=== PATIENT | female | born 1965 | race Caucasian/White ===

== ENCOUNTER → 2017-10-30 | Emergency (ER) | payer MEDICARE, MEDICAID ==
[~2017-10-30] VITALS: Ht 175.3 cm; Wt 97.7 kg
[~2017-10-30] MED LIST: ADV50250 IH; ALBU18HF2 IH; BACL20TA PO; CELE-85 PO; CLA10T PO; DEXL60CA3 PO; DILT180C PO; FURO40TA4 PO; MONT10TA21 PO; MORP40CA2 PO; OXYC40TA39 PO; PENI500T2 PO; POTA8TAB8 PO; PREG100C PO; SPIIN INH; SUMA25TA35 PO; ketorolac trometh inj. 60 MG/2 ML VIAL IM ONE
[2017-10-30 15:42] VITALS: BP 145/97
== END | disposition home or self-care (01) ==
LOC: ER 15:30
DX: J02.9 Acute pharyngitis, unspecified (principal); M25.561 Pain in right knee; I10 Essential (primary) hypertension; J44.9 Chronic obstructive pulmonary disease, unspecified; K21.9 Gastro-esophageal reflux disease without esophagitis; G89.29 Other chronic pain; Z98.890 Other specified postprocedural states; Z79.899 Other long term (current) drug therapy
CPT/HCPCS: 29505; 96372; 99284; J1885

== ENCOUNTER 2017-11-27 09:39 | Inpatient (IN) | payer MEDICARE, MEDICAID ==
[~2017-11-27] VITALS: Ht 175.3 cm; Wt 97.7 kg
[~2017-11-27 09:39] MED LIST changes: -ketorolac trometh inj. 60 MG/2 ML VIAL IM ONE
[2017-11-27] MEDS ORDERED: normal saline 1000ML IV soln IVB ONE (10:10)
[2017-11-27] MEDS ORDERED: ondansetron/PF 4mg/2ml inj IV ONE (10:10)
[2017-11-27] MEDS ORDERED: ketorolac trometh. 30mg/ml inj. IV ONE (10:10)
[2017-11-27 10:13] LABS: HEMATOCRIT 36.2 % (35.0-45.0); HEMOGLOBIN 12.5 g/dl (12.0-16.0); MEAN CORPUSCULAR HGB CONC 34.5 % (33.0-36.5); MEAN CORPUSCULAR VOLUME 83.9 FL (78-98); MEAN PLATELET VOLUME 9.2 FL (7.4-10.4); PLATELET COUNT 145 X10'3 (140-440); RED BLOOD COUNT 4.32 X10'6 (4.20-5.60); RED CELL DISTRIBUTION WIDTH 17.6 % (11.5-14.5)
[2017-11-27 10:22] LABS: WHITE BLOOD COUNT 25.5 X10'3 (4.5-11.0)
[2017-11-27 10:24] LABS: PARTIAL THROMBOPLASTIN TIME 33 SECONDS (22-32); PROTHROMBIN TIME 10.5 SECONDS (9.0-12.0)
[2017-11-27 10:32] LABS: TOTAL CELLS COUNTED 100
[2017-11-27 10:33] LABS: ANISOCYTOSIS 2+; MICROCYTOSIS 1+; PLATELET ESTIMATE NORMAL
[2017-11-27] MEDS ORDERED: azithromycin/NS 500mg/250ml 250 ML IV ONE (10:35)
[2017-11-27] MEDS ORDERED: CefTRIAXone 2gm/D5W 50ml 50 ML IV ONE (10:35)
[2017-11-27 10:36] LABS: ALANINE AMINOTRANSFERASE 51 U/L (12-78); ALBUMIN 3.5 G/DL (3.4-5.0); ALBUMIN/GLOBULIN RATIO 0.9 (1.1-1.5); ALKALINE PHOSPHATASE 77 IU/L (46-116); ANION GAP 14 (8-16); ASPARTATE AMINO TRANSFERASE 124 U/L (10-37); BILIRUBIN,TOTAL 0.8 MG/DL (0.1-1.0); BLOOD UREA NITROGEN 21 MG/DL (7-18); BUN/CREATININE RATIO 30.9 (6.6-38.0); CALCIUM 9.3 MG/DL (8.5-10.1); CHLORIDE 98 MMOL/L (99-107); CREATININE 0.68 MG/DL (0.40-0.90); GLUCOSE 125 MG/DL (70-104); SODIUM 133 MMOL/L (135-145); TOTAL CARBON DIOXIDE 21.3 MMOL/L (24-32); TOTAL PROTEIN 7.6 G/DL (6.4-8.2); eGFR > 90 ML/MIN
[2017-11-27 10:52] LABS: CLARITY,URINE SLIGHTLY CLOUDY (Clear); COLOR,URINE YELLOW (Yellow); GLUCOSE, URINE NEGATIVE (Neg); KETONES,URINE NEGATIVE (Neg); LEUKOCYTE ESTERASE ,URINE NEGATIVE (Neg); NITRITES, URINE NEGATIVE (Neg); OCCULT BLOOD,URINE LARGE (Neg); PROTEIN,URINE TRACE mg/dl (Neg); UROBILINOGEN,URINE 0.2 E.U/dL (0.2-1.0)
[2017-11-27 10:57] LABS: UA COLLECTION TYPE CLN CATCH MIDSTREAM
[2017-11-27 11:02] LABS: BACTERIA,URINE FEW /HPF (Neg); MUCUS STRANDS FEW /LPF (Neg); RBC,URINE 20-50 /HPF (0-2); SQUAMOUS EPITHELIAL CELL,UR MANY /LPF (FEW); WBC,URINE 0-4 /HPF (0-4)
[2017-11-27 11:03] LABS: AMORPHOUS URATES 1+; COARSE GRANULAR CAST 0-3 /LPF (NEGATIVE)
[2017-11-27] MEDS ORDERED: mag hydrox/Alum hydrox/simeth 30ml oral suspension PO PRN (12:25)
[2017-11-27] MEDS ORDERED: acetaminophen 325mg tablet PO PRN (12:25)
[2017-11-27] MEDS ORDERED: magnesium hydroxide 30ml (MOM) UD suspension PO PRN (12:25)
[2017-11-27] MEDS ORDERED: PREG200C PO (13:10)
[2017-11-27] MEDS ORDERED: ALLO100T PO (13:11)
[2017-11-27] MEDS ORDERED: DOCU250C4 PO (13:14)
[2017-11-27] MEDS ORDERED: NICO-687 TD (13:15)
[2017-11-27] MEDS ORDERED: ASPI-611 PO (13:17)
[2017-11-27] MEDS ORDERED: MOME17SP BOTHNARES (13:17)
[2017-11-27] MEDS ORDERED: CLIN-80 PO (13:17)
[2017-11-27] MEDS ORDERED: OXYC-658 PO (13:53)
[2017-11-27] MEDS ORDERED: MORP30TA PO (13:55)
[2017-11-27] MEDS: normal saline 1000ml 1,000 ML IV SCH (14:20)
[2017-11-27] MEDS ORDERED: SUMAtriptan 25 MG tablet PO ONE (16:30)
[2017-11-27] MEDS ORDERED: albuterol 2.5 MG/3 ML nebule NEB PRN (16:50)
[2017-11-27] MEDS ORDERED: MORP30CP13 PO (17:08)
[2017-11-27 18:08] VITALS: BP 121/77
[2017-11-27 19:00] VITALS: BP 102/56
[2017-11-27] MEDS: ipratropium 0.5 MG/2.5ML nebule IH SCH (20:03)
[2017-11-27] MEDS: pregabalin 75mg capsule PO SCH (21:03)
[2017-11-27] MEDS: pregabalin 25mg capsule PO SCH (21:03)
[2017-11-27] MEDS: oxyCODONE IR 5mg (immed. release) tablet PO SCH (21:05)
[2017-11-28] VITALS: BP 107/56
[2017-11-28] MEDS: morphine 4 MG/ML inj SYRINge IV PRN (01:19)
[2017-11-28] MEDS: normal saline 1000ml 1,000 ML IV SCH ×3 (01:20→22:10)
[2017-11-28] MEDS: ipratropium 0.5 MG/2.5ML nebule IH SCH ×4 (02:59→20:36)
[2017-11-28] MEDS: SUMAtriptan 25 MG tablet PO PRN ×2 (03:49→16:19)
[2017-11-28 05:29] LABS: BASOPHILS % (AUTO) 0.2 % (0-1); EOSINOPHILS # (AUTO) 0.3 X10'3 (0-0.9); EOSINOPHILS % (AUTO) 1.4 % (0-6); HEMATOCRIT 31.8 % (35.0-45.0); HEMOGLOBIN 10.8 g/dl (12.0-16.0); LYMPHOCYTES # (AUTO) 1.4 X10'3 (1.1-4.8); LYMPHOCYTES % (AUTO) 7.4 % (21-51); MEAN CORPUSCULAR HGB CONC 34.1 % (33.0-36.5); MEAN PLATELET VOLUME 9.8 FL (7.4-10.4); MONOCYTES # (AUTO) 1.4 X10'3 (0-0.9); MONOCYTES % (AUTO) 7.2 % (2-12); NEUTROPHILS # (AUTO) 16.3 X10'3 (1.8-7.7); NEUTROPHILS % (AUTO) 83.8 % (42-75); PLATELET COUNT 133 X10'3 (140-440); RED BLOOD COUNT 3.74 X10'6 (4.20-5.60); RED CELL DISTRIBUTION WIDTH 17.7 % (11.5-14.5); WHITE BLOOD COUNT 19.4 X10'3 (4.5-11.0)
[2017-11-28 05:40] LABS: ALBUMIN 2.8 G/DL (3.4-5.0); ANION GAP 11 (8-16); BLOOD UREA NITROGEN 11 MG/DL (7-18); CALCIUM 8.5 MG/DL (8.5-10.1); CHLORIDE 102 MMOL/L (99-107); CREATININE 0.61 MG/DL (0.40-0.90); GLUCOSE 148 MG/DL (70-104); POTASSIUM 3.4 MMOL/L (3.5-5.1); SODIUM 138 MMOL/L (135-145); TOTAL CARBON DIOXIDE 24.7 MMOL/L (24-32); eGFR > 90 ML/MIN
[2017-11-28 07:00] VITALS: BP 141/82
[2017-11-28] MEDS: pregabalin 25mg capsule PO SCH ×2 (07:55→20:17)
[2017-11-28] MEDS: allopurinol 100mg tablet PO SCH (07:56)
[2017-11-28] MEDS: morphine ER 30mg tablet PO SCH (07:56)
[2017-11-28] MEDS: montelukast 10mg tablet PO SCH (07:56)
[2017-11-28] MEDS: potassium chloride 8mEq ER tablet PO SCH (07:56)
[2017-11-28] MEDS: pregabalin 75mg capsule PO SCH ×2 (07:57→20:18)
[2017-11-28] MEDS: loratadine 10mg tablet PO SCH (07:57)
[2017-11-28] MEDS: aspirin 81mg tablet.DR PO SCH (07:58)
[2017-11-28] MEDS: pantoprazole 40mg Tablet.DR PO SCH (07:58)
[2017-11-28] MEDS: celeCOXIB 100mg capsule PO SCH (07:58)
[2017-11-28] MEDS: diltiazem CD 180mg cap (once-daily) PO SCH (07:59)
[2017-11-28] MEDS: nicotine 21mg patch - 24 hr TD SCH (07:59)
[2017-11-28] MEDS: enoxaparin 40mg/0.4ml syringe SUBCUT SCH (08:00)
[2017-11-28] MEDS ORDERED: SUMAtriptan 25 MG tablet PO SCH (08:00)
[2017-11-28] MEDS: CefTRIAXone 2gm/D5W 50ml 50 ML IV SCH (08:00)
[2017-11-28] MEDS ORDERED: morphine IR (immed. release) 30mg tablet PO SCH (08:00)
[2017-11-28] MEDS: fluticasone nasal spray 16GM bottle NS SCH (08:00)
[2017-11-28] MEDS: azithromycin/NS 500mg/250ml 250 ML IV SCH (08:08)
[2017-11-28] MEDS ORDERED: phenylephrine 1% (X-tra strg) 15ml nasal spray NS ONE (09:00)
[2017-11-28] MEDS ORDERED: LIDOcaine 4% (40 mg/ml) topical solution 50ml TP ONE (09:00)
[2017-11-28] MEDS: oxyCODONE IR 5mg (immed. release) tablet PO SCH ×3 (10:00→20:43)
[2017-11-28] MEDS ORDERED: butalbital/acetaminophen/caffeine (Fioricet) tablet PO PRN (11:55)
[2017-11-28 12:00] VITALS: BP 113/69
[2017-11-28 19:00] VITALS: BP 123/88
[2017-11-28] MEDS ORDERED: diphenhydrAMINE 50 mg/ml inj IV ONE (21:55)
[2017-11-28] MEDS ORDERED: nicotine 21mg patch - 24 hr TD ONE (21:55)
[2017-11-29] VITALS: BP 119/83
[2017-11-29] MEDS: morphine 4 MG/ML inj SYRINge IV PRN ×2 (02:09→09:19)
[2017-11-29] MEDS: ondansetron/PF 4mg/2ml inj IV PRN ×2 (03:17→09:19)
[2017-11-29] MEDS: ipratropium 0.5 MG/2.5ML nebule IH SCH ×3 (04:11→20:42)
[2017-11-29] MEDS: SUMAtriptan 25 MG tablet PO PRN ×2 (04:20→18:32)
[2017-11-29] MEDS: normal saline 1000ml 1,000 ML IV SCH ×3 (04:24→20:45)
[2017-11-29 05:34] LABS: BASOPHILS % (AUTO) 0.1 % (0-1); EOSINOPHILS # (AUTO) 0.2 X10'3 (0-0.9); EOSINOPHILS % (AUTO) 2.4 % (0-6); HEMATOCRIT 30.2 % (35.0-45.0); HEMOGLOBIN 10.3 g/dl (12.0-16.0); LYMPHOCYTES # (AUTO) 1.2 X10'3 (1.1-4.8); LYMPHOCYTES % (AUTO) 11.8 % (21-51); MEAN CORPUSCULAR VOLUME 85.4 FL (78-98); MEAN PLATELET VOLUME 9.6 FL (7.4-10.4); MONOCYTES # (AUTO) 0.9 X10'3 (0-0.9); MONOCYTES % (AUTO) 9.4 % (2-12); NEUTROPHILS # (AUTO) 7.6 X10'3 (1.8-7.7); NEUTROPHILS % (AUTO) 76.3 % (42-75); PLATELET COUNT 143 X10'3 (140-440); RED BLOOD COUNT 3.54 X10'6 (4.20-5.60); RED CELL DISTRIBUTION WIDTH 18.1 % (11.5-14.5)
[2017-11-29 05:47] LABS: ANION GAP 9 (8-16); BLOOD UREA NITROGEN 9 MG/DL (7-18); BUN/CREATININE RATIO 16.4 (6.6-38.0); CALCIUM 8.9 MG/DL (8.5-10.1); CHLORIDE 103 MMOL/L (99-107); CREATININE 0.55 MG/DL (0.40-0.90); GLUCOSE 133 MG/DL (70-104); POTASSIUM 3.4 MMOL/L (3.5-5.1); SODIUM 141 MMOL/L (135-145); TOTAL CARBON DIOXIDE 29.5 MMOL/L (24-32); eGFR > 90 ML/MIN
[2017-11-29 06:00] VITALS: BP 130/80
[2017-11-29] MEDS: pregabalin 75mg capsule PO SCH ×2 (08:00→19:36)
[2017-11-29] MEDS: morphine ER 30mg tablet PO SCH (08:00)
[2017-11-29] MEDS: fluticasone nasal spray 16GM bottle NS SCH (08:00)
[2017-11-29] MEDS: CefTRIAXone 2gm/D5W 50ml 50 ML IV SCH (09:15)
[2017-11-29] MEDS: azithromycin/NS 500mg/250ml 250 ML IV SCH (09:15)
[2017-11-29] MEDS: nicotine 21mg patch - 24 hr TD SCH (09:21)
[2017-11-29] MEDS: enoxaparin 40mg/0.4ml syringe SUBCUT SCH (09:22)
[2017-11-29] MEDS: pantoprazole 40mg Tablet.DR PO SCH (10:40)
[2017-11-29] MEDS: allopurinol 100mg tablet PO SCH (10:40)
[2017-11-29] MEDS: celeCOXIB 100mg capsule PO SCH (10:40)
[2017-11-29] MEDS: oxyCODONE IR 5mg (immed. release) tablet PO SCH ×3 (10:41→20:40)
[2017-11-29] MEDS: pregabalin 25mg capsule PO SCH ×2 (10:41→19:36)
[2017-11-29] MEDS: potassium chloride 8mEq ER tablet PO SCH (10:42)
[2017-11-29] MEDS: diltiazem CD 180mg cap (once-daily) PO SCH (10:42)
[2017-11-29] MEDS: montelukast 10mg tablet PO SCH (10:42)
[2017-11-29] MEDS: aspirin 81mg tablet.DR PO SCH (10:42)
[2017-11-29] MEDS: loratadine 10mg tablet PO SCH (10:43)
[2017-11-29 11:00] VITALS: BP 128/83
[2017-11-29 19:00] VITALS: BP 137/90
[2017-11-29] MEDS: lactobacillus rhamnosus 10,000 MMU CELLS/CAPSULE PO SCH (19:36)
[2017-11-30] VITALS: BP 141/84
[2017-11-30] MEDS: morphine 4 MG/ML inj SYRINge IV PRN (02:27)
[2017-11-30] MEDS: ipratropium 0.5 MG/2.5ML nebule IH SCH ×4 (03:00→20:38)
[2017-11-30 06:04] LABS: BASOPHILS % (AUTO) 0.3 % (0-1); EOSINOPHILS # (AUTO) 0.2 X10'3 (0-0.9); EOSINOPHILS % (AUTO) 2.9 % (0-6); HEMATOCRIT 31.3 % (35.0-45.0); HEMOGLOBIN 10.5 g/dl (12.0-16.0); LYMPHOCYTES # (AUTO) 1.4 X10'3 (1.1-4.8); LYMPHOCYTES % (AUTO) 25.3 % (21-51); MEAN CORPUSCULAR HEMOGLOBIN 28.9 PG (27.0-31.0); MEAN CORPUSCULAR HGB CONC 33.6 % (33.0-36.5); MONOCYTES # (AUTO) 0.6 X10'3 (0-0.9); MONOCYTES % (AUTO) 11.3 % (2-12); NEUTROPHILS # (AUTO) 3.3 X10'3 (1.8-7.7); NEUTROPHILS % (AUTO) 60.2 % (42-75); PLATELET COUNT 154 X10'3 (140-440); RED BLOOD COUNT 3.64 X10'6 (4.20-5.60); WHITE BLOOD COUNT 5.4 X10'3 (4.5-11.0)
[2017-11-30 06:18] LABS: ALBUMIN 2.5 G/DL (3.4-5.0); ANION GAP 7 (8-16); BLOOD UREA NITROGEN 7 MG/DL (7-18); BUN/CREATININE RATIO 13.5 (6.6-38.0); CALCIUM 8.9 MG/DL (8.5-10.1); CHLORIDE 108 MMOL/L (99-107); CREATININE 0.52 MG/DL (0.40-0.90); GLUCOSE 92 MG/DL (70-104); POTASSIUM 3.5 MMOL/L (3.5-5.1); SODIUM 146 MMOL/L (135-145); TOTAL CARBON DIOXIDE 31.3 MMOL/L (24-32); eGFR > 90 ML/MIN
[2017-11-30 07:00] VITALS: BP 148/101
[2017-11-30] MEDS: diltiazem CD 180mg cap (once-daily) PO SCH (07:45)
[2017-11-30] MEDS: lactobacillus rhamnosus 10,000 MMU CELLS/CAPSULE PO SCH ×2 (07:46→20:06)
[2017-11-30] MEDS: celeCOXIB 100mg capsule PO SCH (07:46)
[2017-11-30] MEDS: pregabalin 25mg capsule PO SCH ×2 (07:46→20:06)
[2017-11-30] MEDS: potassium chloride 8mEq ER tablet PO SCH (07:47)
[2017-11-30] MEDS: morphine ER 30mg tablet PO SCH (07:47)
[2017-11-30] MEDS: pregabalin 75mg capsule PO SCH ×2 (07:47→20:06)
[2017-11-30] MEDS: aspirin 81mg tablet.DR PO SCH (07:47)
[2017-11-30] MEDS: loratadine 10mg tablet PO SCH (07:47)
[2017-11-30] MEDS: montelukast 10mg tablet PO SCH (07:47)
[2017-11-30] MEDS: oxyCODONE IR 5mg (immed. release) tablet PO SCH ×5 (07:48→22:33)
[2017-11-30] MEDS: enoxaparin 40mg/0.4ml syringe SUBCUT SCH (07:49)
[2017-11-30] MEDS: nicotine 21mg patch - 24 hr TD SCH ×2 (07:49→11:10)
[2017-11-30] MEDS: CefTRIAXone 2gm/D5W 50ml 50 ML IV SCH (07:49)
[2017-11-30] MEDS: pantoprazole 40mg Tablet.DR PO SCH (08:00)
[2017-11-30] MEDS: fluticasone nasal spray 16GM bottle NS SCH (08:00)
[2017-11-30] MEDS: allopurinol 100mg tablet PO SCH (08:00)
[2017-11-30] MEDS ORDERED: methylPREDNISolone acetate 80mg/ml inj**IM only IM ONE (09:55)
[2017-11-30] MEDS ORDERED: diphenhydrAMINE 50 mg/ml inj IV ONE ×2 (09:55→14:25)
[2017-11-30] MEDS ORDERED: triamcinolone acetonide 40mg/ml inj IM ONE (10:20)
[2017-11-30 11:00] VITALS: BP 148/111
[2017-11-30] MEDS: azithromycin/NS 500mg/250ml 250 ML IV SCH (11:13)
[2017-11-30] MEDS: normal saline 1000ml 1,000 ML IV SCH ×2 (11:18→19:48)
[2017-11-30] MEDS ORDERED: diphenhydrAMINE 50 mg/ml inj IM ONE (13:40)
[2017-11-30] MEDS ORDERED: ketorolac trometh inj. 60 MG/2 ML VIAL IM ONE (13:45)
[2017-11-30] MEDS: SUMAtriptan 25 MG tablet PO PRN (14:03)
[2017-11-30 20:00] VITALS: BP 179/119
[2017-11-30] MEDS ORDERED: morphine 10mg/ml inj. IV PRN (20:15)
[2017-12-01] VITALS: BP 170/107
[2017-12-01] MEDS: lisinopril 5mg tablet PO SCH ×2 (00:42→07:53)
[2017-12-01] MEDS: famotidine/PF 10 mg/ml inj IV SCH ×2 (01:00→08:00)
[2017-12-01] MEDS: hydrocortisone 1% cream 28gm TP SCH ×3 (01:05→20:17)
[2017-12-01] MEDS: diphenhydrAMINE 50 mg/ml inj IV PRN (01:44)
[2017-12-01] MEDS: ipratropium 0.5 MG/2.5ML nebule IH SCH ×3 (03:00→20:43)
[2017-12-01 05:27] LABS: BASOPHILS % (AUTO) 0.5 % (0-1); EOSINOPHILS # (AUTO) 0.2 X10'3 (0-0.9); EOSINOPHILS % (AUTO) 3.8 % (0-6); HEMATOCRIT 29.1 % (35.0-45.0); HEMOGLOBIN 10.1 g/dl (12.0-16.0); LYMPHOCYTES # (AUTO) 1.5 X10'3 (1.1-4.8); LYMPHOCYTES % (AUTO) 26.3 % (21-51); MEAN CORPUSCULAR HEMOGLOBIN 29.1 PG (27.0-31.0); MEAN CORPUSCULAR HGB CONC 34.5 % (33.0-36.5); MEAN CORPUSCULAR VOLUME 84.1 FL (78-98); MEAN PLATELET VOLUME 8.6 FL (7.4-10.4); MONOCYTES # (AUTO) 0.7 X10'3 (0-0.9); MONOCYTES % (AUTO) 12.8 % (2-12); NEUTROPHILS # (AUTO) 3.2 X10'3 (1.8-7.7); NEUTROPHILS % (AUTO) 56.6 % (42-75); PLATELET COUNT 166 X10'3 (140-440); RED BLOOD COUNT 3.46 X10'6 (4.20-5.60); RED CELL DISTRIBUTION WIDTH 18.3 % (11.5-14.5); WHITE BLOOD COUNT 5.7 X10'3 (4.5-11.0)
[2017-12-01 05:43] LABS: ALBUMIN 2.5 G/DL (3.4-5.0); ANION GAP 7 (8-16); BLOOD UREA NITROGEN 11 MG/DL (7-18); CALCIUM 8.9 MG/DL (8.5-10.1); CHLORIDE 107 MMOL/L (99-107); GLUCOSE 94 MG/DL (70-104); POTASSIUM 3.4 MMOL/L (3.5-5.1); SODIUM 143 MMOL/L (135-145); TOTAL CARBON DIOXIDE 29.5 MMOL/L (24-32); eGFR > 90 ML/MIN
[2017-12-01] MEDS: normal saline 1000ml 1,000 ML IV SCH ×2 (06:24→16:24)
[2017-12-01 06:54] VITALS: BP 156/91
[2017-12-01] MEDS: diltiazem CD 180mg cap (once-daily) PO SCH (07:52)
[2017-12-01] MEDS: pregabalin 25mg capsule PO SCH ×2 (07:52→20:17)
[2017-12-01] MEDS: nicotine 21mg patch - 24 hr TD SCH (07:52)
[2017-12-01] MEDS: pregabalin 75mg capsule PO SCH ×2 (07:52→20:17)
[2017-12-01] MEDS: azithromycin 250mg tablet PO SCH (07:53)
[2017-12-01] MEDS: loratadine 10mg tablet PO SCH (07:53)
[2017-12-01] MEDS: aspirin 81mg tablet.DR PO SCH (07:54)
[2017-12-01] MEDS: allopurinol 100mg tablet PO SCH (07:54)
[2017-12-01] MEDS: lactobacillus rhamnosus 10,000 MMU CELLS/CAPSULE PO SCH ×2 (07:54→20:17)
[2017-12-01] MEDS: celeCOXIB 100mg capsule PO SCH (07:54)
[2017-12-01] MEDS: potassium chloride 8mEq ER tablet PO SCH (07:54)
[2017-12-01] MEDS: morphine ER 30mg tablet PO SCH (07:55)
[2017-12-01] MEDS: CefTRIAXone 2gm/D5W 50ml 50 ML IV SCH (07:55)
[2017-12-01] MEDS: fluticasone nasal spray 16GM bottle NS SCH (08:00)
[2017-12-01] MEDS: montelukast 10mg tablet PO SCH (08:00)
[2017-12-01] MEDS: oxyCODONE IR 5mg (immed. release) tablet PO PRN ×2 (08:09→18:24)
[2017-12-01] MEDS: enoxaparin 40mg/0.4ml syringe SUBCUT SCH (08:11)
[2017-12-01 10:40] VITALS: BP 147/90
[2017-12-01] MEDS ORDERED: LORazepam 0.5 MG tablet PO PRN (10:40)
[2017-12-01] MEDS: diphenhydrAMINE 25mg capsule PO PRN ×2 (15:28→22:20)
[2017-12-01] MEDS: SUMAtriptan 25 MG tablet PO PRN (19:44)
[2017-12-01 20:00] VITALS: BP 150/102
[2017-12-01] MEDS: bacitracin 15gm ointment TP SCH (20:17)
[2017-12-02] VITALS: BP 153/111
[2017-12-02] MEDS: normal saline 1000ml 1,000 ML IV SCH ×3 (02:24→15:10)
[2017-12-02] MEDS: ipratropium 0.5 MG/2.5ML nebule IH SCH ×3 (02:34→20:45)
[2017-12-02] MEDS: oxyCODONE IR 5mg (immed. release) tablet PO PRN ×3 (04:24→20:15)
[2017-12-02 05:28] LABS: BASOPHILS % (AUTO) 0.4 % (0-1); EOSINOPHILS # (AUTO) 0.2 X10'3 (0-0.9); EOSINOPHILS % (AUTO) 4.3 % (0-6); HEMATOCRIT 31.1 % (35.0-45.0); HEMOGLOBIN 10.6 g/dl (12.0-16.0); LYMPHOCYTES # (AUTO) 1.5 X10'3 (1.1-4.8); LYMPHOCYTES % (AUTO) 31.1 % (21-51); MEAN CORPUSCULAR HEMOGLOBIN 28.7 PG (27.0-31.0); MEAN CORPUSCULAR HGB CONC 34.1 % (33.0-36.5); MEAN CORPUSCULAR VOLUME 84.3 FL (78-98); MEAN PLATELET VOLUME 8.2 FL (7.4-10.4); MONOCYTES # (AUTO) 0.7 X10'3 (0-0.9); MONOCYTES % (AUTO) 14.5 % (2-12); NEUTROPHILS # (AUTO) 2.5 X10'3 (1.8-7.7); NEUTROPHILS % (AUTO) 49.7 % (42-75); PLATELET COUNT 181 X10'3 (140-440); RED BLOOD COUNT 3.68 X10'6 (4.20-5.60); RED CELL DISTRIBUTION WIDTH 18.3 % (11.5-14.5); WHITE BLOOD COUNT 4.9 X10'3 (4.5-11.0)
[2017-12-02] MEDS: diphenhydrAMINE 25mg capsule PO PRN ×2 (05:30→22:58)
[2017-12-02 05:40] LABS: ALBUMIN 2.7 G/DL (3.4-5.0); ANION GAP 7 (8-16); BLOOD UREA NITROGEN 10 MG/DL (7-18); BUN/CREATININE RATIO 18.2 (6.6-38.0); CALCIUM 9.2 MG/DL (8.5-10.1); CHLORIDE 105 MMOL/L (99-107); CREATININE 0.55 MG/DL (0.40-0.90); GLUCOSE 104 MG/DL (70-104); SODIUM 143 MMOL/L (135-145); TOTAL CARBON DIOXIDE 31.3 MMOL/L (24-32); eGFR > 90 ML/MIN
[2017-12-02 07:06] VITALS: BP 158/96
[2017-12-02] MEDS: bacitracin 15gm ointment TP SCH ×2 (07:18→20:17)
[2017-12-02] MEDS: hydrocortisone 1% cream 28gm TP SCH ×2 (07:19→20:17)
[2017-12-02] MEDS: pregabalin 75mg capsule PO SCH ×2 (07:20→20:15)
[2017-12-02] MEDS: allopurinol 100mg tablet PO SCH (07:20)
[2017-12-02] MEDS: pregabalin 25mg capsule PO SCH ×2 (07:20→20:16)
[2017-12-02] MEDS: montelukast 10mg tablet PO SCH (07:21)
[2017-12-02] MEDS: loratadine 10mg tablet PO SCH (07:21)
[2017-12-02] MEDS: morphine ER 30mg tablet PO SCH (07:21)
[2017-12-02] MEDS: lisinopril 5mg tablet PO SCH (07:21)
[2017-12-02] MEDS: lactobacillus rhamnosus 10,000 MMU CELLS/CAPSULE PO SCH ×2 (07:22→20:15)
[2017-12-02] MEDS: aspirin 81mg tablet.DR PO SCH (07:22)
[2017-12-02] MEDS: potassium chloride 8mEq ER tablet PO SCH (07:22)
[2017-12-02] MEDS: diltiazem CD 180mg cap (once-daily) PO SCH (07:22)
[2017-12-02] MEDS: celeCOXIB 100mg capsule PO SCH (07:23)
[2017-12-02] MEDS: azithromycin 250mg tablet PO SCH (07:23)
[2017-12-02] MEDS: enoxaparin 40mg/0.4ml syringe SUBCUT SCH (07:24)
[2017-12-02] MEDS: CefTRIAXone 2gm/D5W 50ml 50 ML IV SCH (07:25)
[2017-12-02] MEDS: nicotine 21mg patch - 24 hr TD SCH (07:27)
[2017-12-02] MEDS: ondansetron/PF 4mg/2ml inj IV PRN (10:44)
[2017-12-02 11:00] VITALS: BP_SYST 145; BP_SYST 147; BP_DIAS 85; BP_DIAS 89
[2017-12-02 12:00] VITALS: BP 158/96
[2017-12-02 13:10] VITALS: BP 147/83
[2017-12-02] MEDS: aspirin/acetaminophen/caffeine tablet PO PRN ×2 (15:09→22:59)
[2017-12-02] MEDS: fluticasone nasal spray 16GM bottle NS SCH (16:38)
[2017-12-02 20:00] VITALS: BP 155/98
[2017-12-03] VITALS: BP 139/94
[2017-12-03] MEDS: normal saline 1000ml 1,000 ML IV SCH ×2 (02:23→11:40)
[2017-12-03] MEDS: ipratropium 0.5 MG/2.5ML nebule IH SCH ×2 (03:00→21:13)
[2017-12-03] MEDS: oxyCODONE IR 5mg (immed. release) tablet PO PRN ×3 (04:20→19:48)
[2017-12-03 07:37] VITALS: BP 130/82
[2017-12-03] MEDS: hydrocortisone 1% cream 28gm TP SCH ×3 (08:00→19:37)
[2017-12-03] MEDS: lactobacillus rhamnosus 10,000 MMU CELLS/CAPSULE PO SCH ×2 (09:06→19:35)
[2017-12-03] MEDS: pregabalin 75mg capsule PO SCH (09:07)
[2017-12-03] MEDS: pregabalin 25mg capsule PO SCH (09:07)
[2017-12-03] MEDS: azithromycin 250mg tablet PO SCH (09:07)
[2017-12-03] MEDS: celeCOXIB 100mg capsule PO SCH (09:08)
[2017-12-03] MEDS: diltiazem CD 180mg cap (once-daily) PO SCH (09:09)
[2017-12-03] MEDS: morphine ER 30mg tablet PO SCH (09:09)
[2017-12-03] MEDS: bacitracin 15gm ointment TP SCH ×2 (09:11→19:36)
[2017-12-03] MEDS: aspirin 81mg tablet.DR PO SCH (09:12)
[2017-12-03] MEDS: potassium chloride 8mEq ER tablet PO SCH (09:12)
[2017-12-03] MEDS: loratadine 10mg tablet PO SCH (09:12)
[2017-12-03] MEDS: allopurinol 100mg tablet PO SCH (09:12)
[2017-12-03] MEDS: enoxaparin 40mg/0.4ml syringe SUBCUT SCH (09:13)
[2017-12-03] MEDS: lisinopril 5mg tablet PO SCH (09:13)
[2017-12-03] MEDS: CefTRIAXone 2gm/D5W 50ml 50 ML IV SCH (09:14)
[2017-12-03] MEDS: fluticasone nasal spray 16GM bottle NS SCH (09:16)
[2017-12-03] MEDS: montelukast 10mg tablet PO SCH (09:17)
[2017-12-03] MEDS: nicotine 21mg patch - 24 hr TD SCH (09:23)
[2017-12-03 11:00] VITALS: BP 130/86
[2017-12-03 11:22] VITALS: BP 139/75
[2017-12-03] MEDS ORDERED: oxyCODONE IR 5mg (immed. release) tablet PO PRN (12:35)
[2017-12-03] MEDS: gabapentin 400mg capsule PO SCH ×2 (13:10→22:47)
[2017-12-03] MEDS: ondansetron/PF 4mg/2ml inj IV PRN (13:17)
[2017-12-03] MEDS: diphenhydrAMINE 25mg capsule PO PRN (19:35)
[2017-12-03] MEDS: aspirin/acetaminophen/caffeine tablet PO PRN (19:35)
[2017-12-03 20:00] VITALS: BP 137/87
[2017-12-04] VITALS: BP 138/89
[2017-12-04] MEDS: oxyCODONE IR 5mg (immed. release) tablet PO PRN ×4 (01:34→19:50)
[2017-12-04] MEDS: normal saline 1000ml 1,000 ML IV SCH ×3 (01:35→21:38)
[2017-12-04] MEDS: diphenhydrAMINE 50 mg/ml inj IV PRN ×3 (01:35→23:54)
[2017-12-04] MEDS: ipratropium 0.5 MG/2.5ML nebule IH SCH ×4 (03:00→20:20)
[2017-12-04 07:28] VITALS: BP 137/92
[2017-12-04] MEDS: enoxaparin 40mg/0.4ml syringe SUBCUT SCH (08:00)
[2017-12-04] MEDS: diltiazem CD 180mg cap (once-daily) PO SCH (09:42)
[2017-12-04] MEDS: aspirin 81mg tablet.DR PO SCH (09:42)
[2017-12-04] MEDS: morphine ER 30mg tablet PO SCH (09:42)
[2017-12-04] MEDS: potassium chloride 8mEq ER tablet PO SCH (09:42)
[2017-12-04] MEDS: gabapentin 100mg capsule PO SCH ×3 (09:43→21:38)
[2017-12-04] MEDS: montelukast 10mg tablet PO SCH (09:43)
[2017-12-04] MEDS: loratadine 10mg tablet PO SCH (09:44)
[2017-12-04] MEDS: lisinopril 5mg tablet PO SCH (09:44)
[2017-12-04] MEDS: lactobacillus rhamnosus 10,000 MMU CELLS/CAPSULE PO SCH ×2 (09:45→19:50)
[2017-12-04] MEDS: allopurinol 100mg tablet PO SCH (09:45)
[2017-12-04] MEDS: azithromycin 250mg tablet PO SCH (09:45)
[2017-12-04] MEDS: celeCOXIB 100mg capsule PO SCH (09:46)
[2017-12-04] MEDS: hydrocortisone 1% cream 28gm TP SCH ×2 (09:47→19:51)
[2017-12-04] MEDS: fluticasone nasal spray 16GM bottle NS SCH (09:47)
[2017-12-04] MEDS: nicotine 21mg patch - 24 hr TD SCH (09:49)
[2017-12-04] MEDS: CefTRIAXone 2gm/D5W 50ml 50 ML IV SCH (09:50)
[2017-12-04 11:00] VITALS: BP 125/73
[2017-12-04] MEDS: bacitracin 15gm ointment TP SCH ×2 (13:49→19:51)
[2017-12-04] MEDS: ondansetron/PF 4mg/2ml inj IV PRN (14:00)
[2017-12-04 18:00] VITALS: BP 133/88
[2017-12-04] MEDS: aspirin/acetaminophen/caffeine tablet PO PRN (19:50)
[2017-12-04] MEDS: LORazepam 1 MG tablet PO PRN (21:38)
[2017-12-04] MEDS: docusate sod 250mg capsule PO PRN (21:43)
[2017-12-05] VITALS: BP_SYST 133; BP_SYST 83; BP_DIAS 49; BP_DIAS 82
[2017-12-05] MEDS: ipratropium 0.5 MG/2.5ML nebule IH SCH ×4 (02:23→20:45)
[2017-12-05] MEDS: oxyCODONE IR 5mg (immed. release) tablet PO PRN ×4 (02:47→20:54)
[2017-12-05] MEDS: diltiazem CD 180mg cap (once-daily) PO SCH (07:19)
[2017-12-05] MEDS: lisinopril 5mg tablet PO SCH (07:20)
[2017-12-05] MEDS: nicotine 21mg patch - 24 hr TD SCH (07:31)
[2017-12-05] MEDS: CefTRIAXone 2gm/D5W 50ml 50 ML IV SCH (07:31)
[2017-12-05] MEDS: enoxaparin 40mg/0.4ml syringe SUBCUT SCH (07:32)
[2017-12-05] MEDS: lactobacillus rhamnosus 10,000 MMU CELLS/CAPSULE PO SCH ×2 (07:33→19:29)
[2017-12-05] MEDS: hydrocortisone 1% cream 28gm TP SCH ×2 (07:37→19:31)
[2017-12-05] MEDS: bacitracin 15gm ointment TP SCH ×2 (07:38→19:32)
[2017-12-05] MEDS: fluticasone nasal spray 16GM bottle NS SCH (07:38)
[2017-12-05] MEDS: normal saline 1000ml 1,000 ML IV SCH ×2 (07:41→17:49)
[2017-12-05] MEDS: aspirin 81mg tablet.DR PO SCH (07:42)
[2017-12-05] MEDS: azithromycin 250mg tablet PO SCH (07:42)
[2017-12-05] MEDS: allopurinol 100mg tablet PO SCH (07:42)
[2017-12-05] MEDS: celeCOXIB 100mg capsule PO SCH (07:42)
[2017-12-05] MEDS: gabapentin 100mg capsule PO SCH (07:42)
[2017-12-05] MEDS: potassium chloride 8mEq ER tablet PO SCH (07:43)
[2017-12-05] MEDS: montelukast 10mg tablet PO SCH (07:43)
[2017-12-05] MEDS: loratadine 10mg tablet PO SCH (07:43)
[2017-12-05 08:00] VITALS: BP 98/59
[2017-12-05] MEDS: morphine ER 30mg tablet PO SCH (10:49)
[2017-12-05 11:00] VITALS: BP 119/62
[2017-12-05] MEDS: ondansetron/PF 4mg/2ml inj IV PRN ×2 (12:28→20:53)
[2017-12-05] MEDS: gabapentin 300mg capsule PO SCH ×2 (14:12→20:54)
[2017-12-05 14:24] LABS: BASOPHILS % (AUTO) 0.4 % (0-1); EOSINOPHILS # (AUTO) 0.2 X10'3 (0-0.9); EOSINOPHILS % (AUTO) 3.8 % (0-6); HEMATOCRIT 36.5 % (35.0-45.0); HEMOGLOBIN 12.3 g/dl (12.0-16.0); LYMPHOCYTES # (AUTO) 1.5 X10'3 (1.1-4.8); LYMPHOCYTES % (AUTO) 25.7 % (21-51); MEAN CORPUSCULAR HGB CONC 33.8 % (33.0-36.5); MEAN CORPUSCULAR VOLUME 85.7 FL (78-98); MEAN PLATELET VOLUME 8.4 FL (7.4-10.4); MONOCYTES # (AUTO) 0.4 X10'3 (0-0.9); MONOCYTES % (AUTO) 7.2 % (2-12); NEUTROPHILS # (AUTO) 3.7 X10'3 (1.8-7.7); NEUTROPHILS % (AUTO) 62.9 % (42-75); PLATELET COUNT 279 X10'3 (140-440); RED BLOOD COUNT 4.25 X10'6 (4.20-5.60); RED CELL DISTRIBUTION WIDTH 18.9 % (11.5-14.5); WHITE BLOOD COUNT 5.8 X10'3 (4.5-11.0)
[2017-12-05] MEDS: diphenhydrAMINE 50 mg/ml inj IV PRN ×2 (14:54→23:56)
[2017-12-05 16:09] LABS: ALANINE AMINOTRANSFERASE 29 U/L (12-78); ALBUMIN 3.5 G/DL (3.4-5.0); ALBUMIN/GLOBULIN RATIO 0.9 (1.1-1.5); ANION GAP 9 (8-16); ASPARTATE AMINO TRANSFERASE 22 U/L (10-37); BILIRUBIN,TOTAL 0.3 MG/DL (0.1-1.0); BLOOD UREA NITROGEN 18 MG/DL (7-18); BUN/CREATININE RATIO 23.4 (6.6-38.0); CALCIUM 9.3 MG/DL (8.5-10.1); CHLORIDE 103 MMOL/L (99-107); CREATININE 0.77 MG/DL (0.40-0.90); GLUCOSE 101 MG/DL (70-104); POTASSIUM 4.3 MMOL/L (3.5-5.1); SODIUM 140 MMOL/L (135-145); TOTAL CARBON DIOXIDE 28.3 MMOL/L (24-32); TOTAL PROTEIN 7.3 G/DL (6.4-8.2); eGFR 79 ML/MIN
[2017-12-05 16:14] LABS: ALKALINE PHOSPHATASE 58 IU/L (46-116)
[2017-12-05 18:00] VITALS: BP_SYST 118; BP_SYST 170; BP_DIAS 60; BP_DIAS 78
[2017-12-05] MEDS: SUMAtriptan 25 MG tablet PO PRN (19:29)
[2017-12-05] MEDS: docusate sod 250mg capsule PO PRN (21:54)
[2017-12-05] MEDS: LORazepam 1 MG tablet PO PRN (23:41)
[2017-12-06] VITALS: BP 132/78
[2017-12-06] MEDS: oxyCODONE IR 5mg (immed. release) tablet PO PRN ×4 (02:52→21:33)
[2017-12-06] MEDS: ipratropium 0.5 MG/2.5ML nebule IH SCH ×4 (03:00→20:35)
[2017-12-06] MEDS: normal saline 1000ml 1,000 ML IV SCH (05:07)
[2017-12-06] MEDS: ondansetron/PF 4mg/2ml inj IV PRN ×3 (05:07→17:13)
[2017-12-06 05:39] LABS: BASOPHILS % (AUTO) 0.4 % (0-1); EOSINOPHILS # (AUTO) 0.2 X10'3 (0-0.9); HEMATOCRIT 35.3 % (35.0-45.0); HEMOGLOBIN 11.8 g/dl (12.0-16.0); LYMPHOCYTES # (AUTO) 1.9 X10'3 (1.1-4.8); LYMPHOCYTES % (AUTO) 30.6 % (21-51); MEAN CORPUSCULAR HEMOGLOBIN 28.9 PG (27.0-31.0); MEAN CORPUSCULAR HGB CONC 33.5 % (33.0-36.5); MEAN CORPUSCULAR VOLUME 86.3 FL (78-98); MEAN PLATELET VOLUME 8.5 FL (7.4-10.4); MONOCYTES # (AUTO) 0.5 X10'3 (0-0.9); MONOCYTES % (AUTO) 8.9 % (2-12); NEUTROPHILS # (AUTO) 3.5 X10'3 (1.8-7.7); NEUTROPHILS % (AUTO) 57.1 % (42-75); PLATELET COUNT 282 X10'3 (140-440); RED BLOOD COUNT 4.09 X10'6 (4.20-5.60); RED CELL DISTRIBUTION WIDTH 18.6 % (11.5-14.5); WHITE BLOOD COUNT 6.1 X10'3 (4.5-11.0)
[2017-12-06 06:02] LABS: ALANINE AMINOTRANSFERASE 24 U/L (12-78); ALBUMIN 3.2 G/DL (3.4-5.0); ALBUMIN/GLOBULIN RATIO 0.9 (1.1-1.5); ALKALINE PHOSPHATASE 55 IU/L (46-116); ANION GAP 10 (8-16); ASPARTATE AMINO TRANSFERASE 14 U/L (10-37); BILIRUBIN,TOTAL 0.2 MG/DL (0.1-1.0); BLOOD UREA NITROGEN 19 MG/DL (7-18); BUN/CREATININE RATIO 27.1 (6.6-38.0); CHLORIDE 105 MMOL/L (99-107); GLUCOSE 103 MG/DL (70-104); POTASSIUM 4.4 MMOL/L (3.5-5.1); SODIUM 139 MMOL/L (135-145); TOTAL CARBON DIOXIDE 24.5 MMOL/L (24-32); TOTAL PROTEIN 6.7 G/DL (6.4-8.2); eGFR 88 ML/MIN
[2017-12-06 08:00] VITALS: BP 93/71
[2017-12-06] MEDS: morphine ER 30mg tablet PO SCH (08:00)
[2017-12-06] MEDS: fluticasone nasal spray 16GM bottle NS SCH ×2 (08:00→08:07)
[2017-12-06] MEDS: pantoprazole 40mg Tablet.DR PO SCH (08:04)
[2017-12-06] MEDS: aspirin 81mg tablet.DR PO SCH (08:04)
[2017-12-06] MEDS: potassium chloride 8mEq ER tablet PO SCH (08:05)
[2017-12-06] MEDS: celeCOXIB 100mg capsule PO SCH (08:05)
[2017-12-06] MEDS: lisinopril 5mg tablet PO SCH (08:05)
[2017-12-06] MEDS: lactobacillus rhamnosus 10,000 MMU CELLS/CAPSULE PO SCH ×2 (08:05→20:00)
[2017-12-06] MEDS: loratadine 10mg tablet PO SCH (08:05)
[2017-12-06] MEDS: allopurinol 100mg tablet PO SCH (08:05)
[2017-12-06] MEDS: montelukast 10mg tablet PO SCH (08:05)
[2017-12-06] MEDS: diltiazem CD 180mg cap (once-daily) PO SCH (08:05)
[2017-12-06] MEDS: azithromycin 250mg tablet PO SCH (08:05)
[2017-12-06] MEDS: gabapentin 300mg capsule PO SCH ×3 (08:05→20:00)
[2017-12-06] MEDS: hydrocortisone 1% cream 28gm TP SCH ×2 (08:06→20:00)
[2017-12-06] MEDS: CefTRIAXone 2gm/D5W 50ml 50 ML IV SCH (08:06)
[2017-12-06] MEDS: nicotine 21mg patch - 24 hr TD SCH (08:06)
[2017-12-06] MEDS: bacitracin 15gm ointment TP SCH ×2 (08:08→20:01)
[2017-12-06] MEDS: aspirin/acetaminophen/caffeine tablet PO PRN (11:02)
[2017-12-06 12:00] VITALS: BP 111/74
[2017-12-06] MEDS ORDERED: morphine ER 30mg tablet PO SCH (14:00)
[2017-12-06] MEDS: baclofen 10mg tablet PO PRN (17:13)
[2017-12-06 19:00] VITALS: BP 107/71
[2017-12-06] MEDS: docusate sod 250mg capsule PO SCH (20:00)
[2017-12-06] MEDS: diphenhydrAMINE 50 mg/ml inj IV PRN (21:35)
[2017-12-06] MEDS: LORazepam 1 MG tablet PO PRN (21:35)
[2017-12-07] VITALS: BP 107/66
[2017-12-07] MEDS: ipratropium 0.5 MG/2.5ML nebule IH SCH ×2 (02:40→07:35)
[2017-12-07] MEDS: SUMAtriptan 25 MG tablet PO PRN (03:10)
[2017-12-07] MEDS: oxyCODONE IR 5mg (immed. release) tablet PO PRN ×2 (04:49→10:58)
[2017-12-07 05:34] LABS: BASOPHILS % (AUTO) 0.6 % (0-1); EOSINOPHILS # (AUTO) 0.2 X10'3 (0-0.9); EOSINOPHILS % (AUTO) 3.1 % (0-6); HEMATOCRIT 37.7 % (35.0-45.0); HEMOGLOBIN 12.6 g/dl (12.0-16.0); LYMPHOCYTES % (AUTO) 34.1 % (21-51); MEAN CORPUSCULAR HEMOGLOBIN 29.2 PG (27.0-31.0); MEAN CORPUSCULAR HGB CONC 33.6 % (33.0-36.5); MEAN CORPUSCULAR VOLUME 86.9 FL (78-98); MEAN PLATELET VOLUME 8.2 FL (7.4-10.4); MONOCYTES # (AUTO) 0.5 X10'3 (0-0.9); MONOCYTES % (AUTO) 8.8 % (2-12); NEUTROPHILS # (AUTO) 3.1 X10'3 (1.8-7.7); NEUTROPHILS % (AUTO) 53.4 % (42-75); PLATELET COUNT 304 X10'3 (140-440); RED BLOOD COUNT 4.34 X10'6 (4.20-5.60); RED CELL DISTRIBUTION WIDTH 18.9 % (11.5-14.5); WHITE BLOOD COUNT 5.9 X10'3 (4.5-11.0)
[2017-12-07 06:12] LABS: ALANINE AMINOTRANSFERASE 23 U/L (12-78); ALBUMIN 3.5 G/DL (3.4-5.0); ALBUMIN/GLOBULIN RATIO 0.9 (1.1-1.5); ALKALINE PHOSPHATASE 56 IU/L (46-116); ANION GAP 9 (8-16); ASPARTATE AMINO TRANSFERASE 10 U/L (10-37); BILIRUBIN,TOTAL 0.3 MG/DL (0.1-1.0); BLOOD UREA NITROGEN 17 MG/DL (7-18); BUN/CREATININE RATIO 24.3 (6.6-38.0); CALCIUM 9.7 MG/DL (8.5-10.1); CHLORIDE 104 MMOL/L (99-107); GLUCOSE 97 MG/DL (70-104); POTASSIUM 4.2 MMOL/L (3.5-5.1); SODIUM 139 MMOL/L (135-145); TOTAL CARBON DIOXIDE 25.7 MMOL/L (24-32); TOTAL PROTEIN 7.2 G/DL (6.4-8.2); eGFR 88 ML/MIN
[2017-12-07] MEDS ORDERED: morphine ER 30mg tablet PO SCH (06:57)
[2017-12-07 07:40] VITALS: BP 96/63
[2017-12-07] MEDS: fluticasone nasal spray 16GM bottle NS SCH (08:00)
[2017-12-07] MEDS: lisinopril 5mg tablet PO SCH (08:00)
[2017-12-07] MEDS: diltiazem CD 180mg cap (once-daily) PO SCH (08:00)
[2017-12-07] MEDS: CefTRIAXone 2gm/D5W 50ml 50 ML IV SCH (08:20)
[2017-12-07] MEDS: aspirin/acetaminophen/caffeine tablet PO PRN (08:20)
[2017-12-07] MEDS: lactobacillus rhamnosus 10,000 MMU CELLS/CAPSULE PO SCH (08:20)
[2017-12-07] MEDS: montelukast 10mg tablet PO SCH (08:21)
[2017-12-07] MEDS: loratadine 10mg tablet PO SCH (08:21)
[2017-12-07] MEDS: azithromycin 250mg tablet PO SCH (08:21)
[2017-12-07] MEDS: potassium chloride 8mEq ER tablet PO SCH (08:21)
[2017-12-07] MEDS: aspirin 81mg tablet.DR PO SCH (08:21)
[2017-12-07] MEDS: docusate sod 250mg capsule PO SCH (08:21)
[2017-12-07] MEDS: allopurinol 100mg tablet PO SCH (08:21)
[2017-12-07] MEDS: celeCOXIB 100mg capsule PO SCH (08:21)
[2017-12-07] MEDS: gabapentin 300mg capsule PO SCH ×2 (08:21→13:17)
[2017-12-07] MEDS: pantoprazole 40mg Tablet.DR PO SCH (08:21)
[2017-12-07] MEDS: nicotine 21mg patch - 24 hr TD SCH (08:23)
[2017-12-07] MEDS: hydrocortisone 1% cream 28gm TP SCH (08:24)
[2017-12-07] MEDS: bacitracin 15gm ointment TP SCH (08:24)
[2017-12-07] MEDS: baclofen 10mg tablet PO PRN (10:56)
[2017-12-07 11:39] VITALS: BP 116/71
[2017-12-07] MEDS: ondansetron/PF 4mg/2ml inj IV PRN (12:03)
== END 2017-12-07 15:00 | disposition home or self-care (01) | DRG 190 ==
LOC: ER 09:40 → ED HOLD 12:24 → EDBEDREQ 16:13 → SUR 3N 17:20
PROVIDERS: ADMIT Family Medicine; ATTEND Family Medicine
DX: J44.0 Chronic obstructive pulmonary disease with (acute) lower respiratory infection (principal); J18.1 Lobar pneumonia, unspecified organism; E87.1 Hypo-osmolality and hyponatremia; G89.4 Chronic pain syndrome; I10 Essential (primary) hypertension; M79.7 Fibromyalgia; E87.6 Hypokalemia; G43.909 Migraine, unspecified, not intractable, without status migrainosus; K21.9 Gastro-esophageal reflux disease without esophagitis; M19.90 Unspecified osteoarthritis, unspecified site; R21 Rash and other nonspecific skin eruption; F17.210 Nicotine dependence, cigarettes, uncomplicated; Z88.1 Allergy status to other antibiotic agents; Z79.82 Long term (current) use of aspirin; Z79.899 Other long term (current) drug therapy; Z87.11 Personal history of peptic ulcer disease
CPT/HCPCS: 36415; 70450; 71045; 74176; 80048; 80053; 81001; 83880; 84145; 84484; 85025; 85610; 85730; 87070; 93005; 94640; 94760; 96360; 99285; A6212; A6257; J0456; J0696; J1200; J1650; J1885; J2270; J2405; J3301; J3490; J7030; Q0163